=== PATIENT | male | born 1995 | race Hispanic/Latino ===

== ENCOUNTER 2023-07-06 13:15 | Emergency (ER) | payer SELFPAY ==
[2023-07-06 13:17] VITALS: BP 130/75; PULSE 89; RESP 17; TEMP 36.3; O2SAT 98
--- NOTE | 2023-07-06 14:01 | ED.WOUNDLAC ---
HPI - Wound/Laceration General Chief Complaint: Wound/Laceration Stated Complaint: lac to L wrist Time Seen by Provider: 07/06/23 13:22 Source: patient Mode of arrival: ambulatory Limitations: no limitations History of Present Illness HPI narrative: Patient is a 27-year-old male who presents the ED with report of a laceration to his left wrist. Patient reports he was working on carpeting today when his knife slipped and he sustained a laceration to his left volar wrist. No other injuries. Tetanus unknown. Patient denies numbness/tingling of fingers, difficulty moving fingers or wrist. Denies self harm. Related Data Home Medications Medication Instructions Recorded Confirmed No Home Medications 07/06/23 07/06/23 Allergies Allergy/AdvReac Type Severity Reaction Status Date / Time No Known Allergies Allergy Verified 07/06/23 13:21 Review of Systems Review of Systems: CONSTITUTIONAL: Denies fever, chills, or sweats. SKIN: See HPI NEUROLOGIC: Denies tingling, numbness, or weakness. All systems reviewed & are unremarkable except as noted in HPI and below Exam Narrative: GENERAL: Well appearing, well-nourished, non-toxic, in no acute distress. HEAD: Normocephalic, atraumatic. RESPIRATORY: Airway patent, respirations nonlabored. CARDIOVASCULAR: Regular rate and rhythm. Radial pulses strong, easily palpable. MUSCULOSKELETAL: Moves all extremities. No gross deformities. Full ROM of L wrist flexion/extension, finger flexion/extension. Able to perform OK, thumbs up sign. Sensation intact throughout wrist/hand/fingers. Capillary refill intact. SKIN: Warm, dry, normal color. Approx 7cm linear laceration to distal L volar wrist, a few fingerbreadths from palm, fairly superficial, no active bleeding. NEURO: A&O X3. Speech clear. PSYCHIATRIC: Appropriate mood and affect. Normal interaction. Course Vital Signs Vital signs: Vital Signs Temperature 97.3 F L 07/06/23 13:17 Pulse Rate 89 07/06/23 13:17 Respiratory Rate 17 07/06/23 13:17 Blood Pressure 130/75 07/06/23 13:17 Pulse Oximetry 98 07/06/23 13:17 Oxygen Delivery Room Air 07/06/23 13:17 Temperature 97.3 F L 07/06/23 13:17 Pulse Rate 89 07/06/23 13:17 Respiratory Rate 17 07/06/23 13:17 Blood Pressure 130/75 07/06/23 13:17 Pulse Oximetry 98 07/06/23 13:17 Oxygen Delivery Room Air 07/06/23 13:17 Procedures Laceration Laceration 1: Date: 07/06/23 Time: 14:40 Site: upper extremity Side (If applicable): left Size (cm): 7 Description: linear Depth: simple, single layer Local Anesthetic: lidocaine 1% Amount of anesthesia used (mL): 6 Pre-repair: wound explored, irrigated, irrigated extensively and deep structures intact ====== Skin Level ====== Skin layer closed with: nylon Size (cm): 4-0 Number of sutures: 9 Technique: simple, interrupted ====== Subcutaneous Layer ====== ====== Muscle Layer ====== ====== Tendon Layer ====== MDM - Wound/Laceration MDM Narrative Medical decision making narrative: Patient presented to ED with accidental laceration to left volar wrist. Patient neurologically intact. No evidence of nerve or tendon injury. Full range of motion on exam. Sensation intact. Laceration was repaired without complications. Tetanus status updated. Patient given wound care instructions and reasons to return. Discharged in stable condition. Medical Records Attestation: I reviewed the patient's medical records. Discharge Plan Discharge Clinical Impression: Laceration of left wrist Qualifiers: Encounter type: initial encounter Qualified Code(s): S61.512A - Laceration without foreign body of left wrist, initial encounter Patient Disposition: Home, Self-Care Condition: Stable Instructions: Antibiotic Form, Care For Your Stitches (ED), Laceration (ED) Additional Instructions: Retur
[2023-07-06] MEDS: TETANUS,DIPHTHERIA,AC PERTUSSIS ADULT (0.5 ML) BOOSTRIX IM (14:08)
[2023-07-06] MEDS: IBUPROFEN 600 MG TABLET PO (14:08)
== END 2023-07-06 15:15 | disposition home or self-care (01) ==
PROVIDERS: Emergency Provider Physician Assistant
DX: S61.512A Laceration without foreign body of left wrist, initial encounter (principal); Z23 Encounter for immunization; W26.0XXA Contact with knife, initial encounter
CPT/HCPCS: 12002; 90471; 90715; 99282; A9270

== ENCOUNTER 2023-07-17 11:50 | Emergency (ER) | payer SELFPAY ==
[2023-07-17 11:53] VITALS: BP 150/99; PULSE 74; RESP 17; TEMP 36.3; O2SAT 100
--- NOTE | 2023-07-17 13:03 | ED.GENADULT ---
HPI - General Adult General Chief complaint: Unspecified Stated complaint: needs stitches removed Time Seen by Provider: 07/17/23 13:03 Source: patient and old records reviewed Mode of arrival: ambulatory Limitations: no limitations History of Present Illness HPI narrative: Patient is a 28-year-old male who presents the ED to have his stitches removed. Patient sustained a laceration to his left wrist on 07/05. His sutures were placed by myself in the ED. He presents today to have sutures removed. Denies any issues with the wound. Denies drainage redness, warmth, fevers, pain. Related Data Home Medications Medication Instructions Recorded Confirmed No Home Medications 07/06/23 07/17/23 Allergies Allergy/AdvReac Type Severity Reaction Status Date / Time No Known Allergies Allergy Verified 07/17/23 11:51 Review of Systems Review of Systems: CONSTITUTIONAL: Denies fever, chills, or sweats. SKIN: See HPI MUSCULOSKELETAL: See HPI. All systems reviewed & are unremarkable except as noted in HPI and below Exam Narrative: GENERAL: Well appearing, well-nourished, non-toxic, in no acute distress. HEAD: Normocephalic, atraumatic. RESPIRATORY: Airway patent, respirations nonlabored. CARDIOVASCULAR: Regular rate and rhythm without murmurs, rubs, or gallops. Radial pulses easily palpable MUSCULOSKELETAL: Moves all extremities. No gross deformities. SKIN: Warm, dry, normal color. Healed laceration to L dorsal wrist, no evidence of dehiscence. No swelling, erythema, drainage , bleeding. No evidence of infection. Some dried crusting material in base of laceration. no significant tenderness. NEURO: A&O X3. Speech clear. PSYCHIATRIC: Appropriate mood and affect. Normal interaction. Course Vital Signs Vital signs: Vital Signs Temperature 97.4 F L 07/17/23 11:53 Pulse Rate 74 07/17/23 11:53 Respiratory Rate 17 07/17/23 11:53 Blood Pressure 150/99 H 07/17/23 11:53 Pulse Oximetry 100 07/17/23 11:53 Oxygen Delivery Room Air 07/17/23 11:53 Temperature 97.4 F L 07/17/23 11:53 Pulse Rate 74 07/17/23 11:53 Respiratory Rate 17 07/17/23 11:53 Blood Pressure 150/99 H 07/17/23 11:53 Pulse Oximetry 100 07/17/23 11:53 Oxygen Delivery Room Air 07/17/23 11:53 Medical Decision Making MDM Narrative Medical decision making narrative: Sutures removed. Wound healed. No evidence of infection. Patient given continued wound care instructions. Medical Records Medical records reviewed: Yes I reviewed the external patient's medical records. Vital Signs Vital Signs: Vital Signs Temperature 97.4 F L 07/17/23 11:53 Pulse Rate 74 07/17/23 11:53 Respiratory Rate 17 07/17/23 11:53 Blood Pressure 150/99 H 07/17/23 11:53 Pulse Oximetry 100 07/17/23 11:53 Oxygen Delivery Room Air 07/17/23 11:53 Temperature 97.4 F L 07/17/23 11:53 Pulse Rate 74 07/17/23 11:53 Respiratory Rate 17 07/17/23 11:53 Blood Pressure 150/99 H 07/17/23 11:53 Pulse Oximetry 100 07/17/23 11:53 Oxygen Delivery Room Air 07/17/23 11:53 Discharge Plan Discharge Clinical Impression: Encounter for removal of sutures Patient Disposition: Home, Self-Care Condition: Stable Instructions: Antibiotic Form, Stitches Removal (ED) Additional Instructions: Keep wound clean and dry. You may apply antibiotic ointment. Return to the ED if you experience opening of wound, bleeding, drainage, severe pain, or any other symptoms of concern. Prescriptions: No Action No Home Medications Follow-up/Referrals: PHYSICIAN,UI DEVELOPER [Primary Care Provider] - Time of Disposition: 13:05
== END 2023-07-17 13:33 | disposition home or self-care (01) ==
LOC: ANHED 13:12
PROVIDERS: Emergency Provider Physician Assistant
DX: S61.512D Laceration without foreign body of left wrist, subsequent encounter (principal); X58.XXXD Exposure to other specified factors, subsequent encounter
CPT/HCPCS: 15853; 99282